=== PATIENT | male | born 2000 | race Caucasian/White ===

== ENCOUNTER 2024-04-17 08:25 | Emergency (ER) | payer OTHER, SELFPAY ==
--- NOTE | ~2024-04-17 | CT_ITS ---
EXAMINATION: CT thoracic lumbar wo con DATE: 04/17/2024 10:16 INDICATION: Lower thoracic back pain TECHNIQUE: 1. AP, lateral and lateral swimmers views of the thoracic spine were obtained. 2. AP and lateral views of the lumbar spine and cone-down lateral view of the lumbosacral junction we re obtained. COMPARISON: None FINDINGS: Thoracic spine: 10 degrees thoracic dextroscoliosis. Sagittal alignment is normal. Chronic appearing minimal likely p hysiologic anterior wedging at T8-L1. No acute fracture. Mild disc height loss at T3-T4 through T6-T7 . Minimal multilevel facet osteoarthritis. No central canal or neural foraminal stenosis. Paravertebr al soft tissues and visualized lungs are unremarkable. Lumbar spine: 2 mm retrolisthesis L4 on L5. Minimal anterior wedging at L1. No acute fracture. Mild disc height los s at L4-L5 and L5-S1. There is associated disc bulges resulting in mild central canal stenosis at L4- L5 and minimal central canal stenosis at L5-S1. Minimal facet osteoarthritis in the lower lumbar spin e. Mild bilateral neural or foraminal stenosis at L4-5 and L5-S1. Paravertebral soft tissues are unre markable. Mild subarticular cystlike changes versus erosions at both sides of the right sacroiliac ar int which could be degenerative or related to early sacroiliitis. IMPRESSION: 1. 10 degrees thoracic dextroscoliosis with minimal to mild spondylosis. 2. Mild lower lumbar spondylosis with 2 mm retrolisthesis L4 on L5. 3. A couple tiny subarticular cysts versus erosions at both sides of the right sacral iliac joint whi ch could be related to mild osteoarthritis or early sacroiliitis. Reviewed, dictated and finalized at location A. IMPRESSION: 1. 10 degrees thoracic dextroscoliosis with minimal to mild spondylosis. 2. Mild lower lumbar spondylosis with 2 mm retrolisthesis L4 on L5. 3. A couple tiny subarticular cysts versus erosions at both sides of the right sacral iliac joint which could be related to mild osteoarthritis or early sacro iliitis.
[2024-04-17 08:29] VITALS: BP 150/84; PULSE 75; RESP 16; TEMP 36.2; O2SAT 100
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
[2024-04-17] MEDS: HYDROcodone/acetaminophen (*CRX) 5-325 MG TABLET 1 TAB PO (09:18)
[2024-04-17] MEDS: LIDOCAINE 5% PATCH 1 PATCH TRANSDERM (09:18)
[2024-04-17 09:31] LABS: Add Urine Microscopic? NO; Appearance Urine Clear (Clear); Bilirubin Urine Negative (Negative); Blood Urine Negative (Negative); Color Urine Yellow (Yellow); Glucose Urine UA Negative (Negative); Ketones Urine Negative (Negative); Leukocyte Esterase Ur Negative LEU/UL (Negative); Nitrate Urine Negative (Negative); Protein Urine Negative (Negative); Specific Grav Ur 1.022 (1.001-1.035); Urobilinogen Urine 0.2 mg/dL (<2.0); pH Urine 7.5 (5.0-9.0)
[2024-04-17 10:30] VITALS: BP 140/76; PULSE 53; RESP 16; O2SAT 98
[2024-04-17] MEDS: KETOROLAC 30 MG/ML VIAL (*BKC) 15 MG IM (11:43)
[2024-04-17 11:47] VITALS: BP 106/56; PULSE 72; RESP 18; TEMP 36.6; O2SAT 100
== END 2024-04-17 11:50 | disposition home or self-care (01) ==
PROVIDERS: Emergency Provider Student in an Organized Health Care Education/Training Program
DX: M47.816 Spondylosis without myelopathy or radiculopathy, lumbar region (principal); M41.9 Scoliosis, unspecified; S39.012A Strain of muscle, fascia and tendon of lower back, initial encounter; M54.50 Low back pain, unspecified; G89.29 Other chronic pain; X58.XXXA Exposure to other specified factors, initial encounter
CPT/HCPCS: 72128; 72131; 81003; 96372; 99284; A9270; J1885